=== PATIENT | female | born 1985 | race Caucasian/White ===

== ENCOUNTER 2019-05-11 20:10 | Emergency (ER) | payer MEDICAID ==
[~2019-05-11] VITALS: Ht 167.6 cm; Wt 57.7 kg
[2019-05-11 20:18] VITALS: Ht 167.6 cm; Wt 57.7 kg
[2019-05-11] MEDS ORDERED: CYCLOBENZAPRINE10 MG PO (21:21)
[2019-05-11] MEDS ORDERED: TALWIN NX1 TAB PO (21:21)
[2019-05-11] MEDS ORDERED: VOLTAREN75 MG PO (21:21)
[2019-05-11 21:34] VITALS: BP 115/78
== END 2019-05-11 21:34 | disposition home or self-care (01) ==
LOC: D.ER 20:10
DX: S39.012A Strain of muscle, fascia and tendon of lower back, initial encounter (principal); Y93.H2 Activity, gardening and landscaping; Y92.017 Garden or yard in single-family (private) house as the place of occurrence of the external cause; M54.32 Sciatica, left side; M54.31 Sciatica, right side